=== PATIENT | female | born 1945 | race Caucasian/White ===

== ENCOUNTER 2017-12-29 08:45 | Emergency (ER) | payer OTHER ==
[~2017-12-29] VITALS: Ht 149.9 cm; Wt 175.0 kg
[~2017-12-29 08:45] MED LIST: CIPR500 PO; CITA20 PO; FLUO20 PO; HYDACE10B PO; HYDACE5 PO; HYDCHL12.5 PO; Keflex500 MG PO; LISI20 PO; LORA1 PO; PROM25 PO; Pyridium100 MG PO; RXLORA1 PO; SOLI5 PO; TRAM50 PO; VERA80 PO
[2017-12-29] MEDS ORDERED: Norco 5-325 Ta1 EACH PO (11:39)
== END 2017-12-29 11:50 | disposition home or self-care (01) ==
LOC: ER 08:45
DX: S02.31XA Fracture of orbital floor, right side, initial encounter for closed fracture (principal); S02.40CA Maxillary fracture, right side, initial encounter for closed fracture; S52.502A Unspecified fracture of the lower end of left radius, initial encounter for closed fracture; S00.83XA Contusion of other part of head, initial encounter; S60.222A Contusion of left hand, initial encounter; S80.211A Abrasion, right knee, initial encounter; Z23 Encounter for immunization; F41.9 Anxiety disorder, unspecified; F32.9 Major depressive disorder, single episode, unspecified; Z79.899 Other long term (current) drug therapy; Z87.891 Personal history of nicotine dependence; W17.89XA Other fall from one level to another, initial encounter
CPT/HCPCS: 29105; 70450; 70486; 73130; 90471; 90714; 99284

== ENCOUNTER 2018-09-05 16:57 | Emergency (ER) | payer OTHER ==
[~2018-09-05] VITALS: Ht 149.9 cm; Wt 85.3 kg
[~2018-09-05 16:57] MED LIST changes: +Norco 5-325 Ta1 EACH PO
== END 2018-09-05 19:47 | disposition home or self-care (01) ==
LOC: ER 16:57
DX: S52.601A Unspecified fracture of lower end of right ulna, initial encounter for closed fracture (principal); S51.811A Laceration without foreign body of right forearm, initial encounter; W01.198A Fall on same level from slipping, tripping and stumbling with subsequent striking against other object, initial encounter; Z87.891 Personal history of nicotine dependence; Z79.899 Other long term (current) drug therapy; F32.9 Major depressive disorder, single episode, unspecified; F41.9 Anxiety disorder, unspecified
CPT/HCPCS: 12002; 29125; 36415; 73090; 96374; 96375; 99283-25; J1170; J2405

== ENCOUNTER 2020-04-07 07:20 | Emergency (ER) | payer OTHER ==
[~2020-04-07] VITALS: Ht 149.9 cm; Wt 86.2 kg
[2020-04-07] MEDS ORDERED: HYDR1TAB94 PO (08:36)
== END 2020-04-07 08:45 | disposition home or self-care (01) ==
LOC: ER 07:20
DX: S96.912A Strain of unspecified muscle and tendon at ankle and foot level, left foot, initial encounter (principal); S30.0XXA Contusion of lower back and pelvis, initial encounter; S20.219A Contusion of unspecified front wall of thorax, initial encounter; R51 Headache; M25.512 Pain in left shoulder; Z88.5 Allergy status to narcotic agent; Z79.899 Other long term (current) drug therapy; Z87.891 Personal history of nicotine dependence; W10.9XXA Fall (on) (from) unspecified stairs and steps, initial encounter
CPT/HCPCS: 71046; 72170; 73610; 99284-25; A9270-GY

== ENCOUNTER 2020-04-17 14:57 | Emergency (ER) | payer OTHER ==
[~2020-04-17] VITALS: Ht 149.9 cm; Wt 86.2 kg
[~2020-04-17 14:57] MED LIST changes: +HYDR1TAB94 PO
[2020-04-17] MEDS ORDERED: HYDR1TAB94 PO (16:27)
[2020-04-17] MEDS ORDERED: CEPH500 PO (16:35)
== END 2020-04-17 16:51 | disposition home or self-care (01) ==
LOC: ER 14:57
DX: S61.412A Laceration without foreign body of left hand, initial encounter (principal); S90.512A Abrasion, left ankle, initial encounter; L08.9 Local infection of the skin and subcutaneous tissue, unspecified; F41.9 Anxiety disorder, unspecified; F32.9 Major depressive disorder, single episode, unspecified; F17.200 Nicotine dependence, unspecified, uncomplicated; Z88.5 Allergy status to narcotic agent; Z79.899 Other long term (current) drug therapy; W23.0XXA Caught, crushed, jammed, or pinched between moving objects, initial encounter
CPT/HCPCS: 12002; 99283-25

== ENCOUNTER → 2020-04-25 | Outpatient (CLI) | payer OTHER ==
[~2020-04-25] MED LIST changes: +CEPH500 PO
== END | disposition home or self-care (01) ==
LOC: LAB SHORT 07:13 → LAB 07:13 → LAB SHORT 04-26 07:13
DX: L98.499 Non-pressure chronic ulcer of skin of other sites with unspecified severity (principal)
CPT/HCPCS: 87070; 87075; 87205

== ENCOUNTER 2020-05-08 00:41 | Day surgery (SDC) | payer OTHER | END 2020-05-08 23:10 | disposition home or self-care (01) | LOC: WOUND 00:41 | DX: S91.302A Unspecified open wound, left foot, initial encounter (principal); I96 Gangrene, not elsewhere classified; I10 Essential (primary) hypertension; B19.20 Unspecified viral hepatitis C without hepatic coma; M17.0 Bilateral primary osteoarthritis of knee; G89.29 Other chronic pain; M54.9 Dorsalgia, unspecified; F41.9 Anxiety disorder, unspecified; F32.9 Major depressive disorder, single episode, unspecified; F17.210 Nicotine dependence, cigarettes, uncomplicated; E78.5 Hyperlipidemia, unspecified; E55.9 Vitamin D deficiency, unspecified; K21.9 Gastro-esophageal reflux disease without esophagitis; E66.3 Overweight; Z68.38 Body mass index [BMI] 38.0-38.9, adult; Z88.5 Allergy status to narcotic agent; Z88.8 Allergy status to other drugs, medicaments and biological substances; Z79.899 Other long term (current) drug therapy; Z90.710 Acquired absence of both cervix and uterus; X58.XXXA Exposure to other specified factors, initial encounter ==

== ENCOUNTER 2020-05-15 00:36 | Day surgery (SDC) | payer OTHER | END 2020-05-15 22:48 | disposition home or self-care (01) | LOC: WOUND 00:36 | DX: L97.522 Non-pressure chronic ulcer of other part of left foot with fat layer exposed (principal); I10 Essential (primary) hypertension; Z79.899 Other long term (current) drug therapy ==

== ENCOUNTER 2020-05-23 00:47 | Day surgery (SDC) | payer OTHER | END 2020-05-23 22:50 | disposition home or self-care (01) | LOC: WOUND 00:47 | DX: L97.522 Non-pressure chronic ulcer of other part of left foot with fat layer exposed (principal); I10 Essential (primary) hypertension; E66.3 Overweight; Z68.38 Body mass index [BMI] 38.0-38.9, adult; Z79.899 Other long term (current) drug therapy ==

== ENCOUNTER 2020-06-06 02:10 | Day surgery (SDC) | payer OTHER | END 2020-06-06 23:11 | disposition home or self-care (01) | LOC: WOUND 02:10 | DX: S91.302D Unspecified open wound, left foot, subsequent encounter (principal); L97.521 Non-pressure chronic ulcer of other part of left foot limited to breakdown of skin; M19.90 Unspecified osteoarthritis, unspecified site; I10 Essential (primary) hypertension; G89.29 Other chronic pain; M54.9 Dorsalgia, unspecified; F32.9 Major depressive disorder, single episode, unspecified; F41.9 Anxiety disorder, unspecified; E66.3 Overweight; Z68.38 Body mass index [BMI] 38.0-38.9, adult; Z88.5 Allergy status to narcotic agent; Z79.899 Other long term (current) drug therapy; W10.9XXD Fall (on) (from) unspecified stairs and steps, subsequent encounter; I73.9 Peripheral vascular disease, unspecified; B19.20 Unspecified viral hepatitis C without hepatic coma | CPT/HCPCS: G0463 ==